=== PATIENT | male | born 1985 | race Caucasian/White ===

== ENCOUNTER 2019-02-23 22:00 | Emergency (ER) | payer SELFPAY ==
[2019-02-23] MEDS ORDERED: Ibuprofen 800 MG TAB ONE (22:06)
[2019-02-23] MEDS ORDERED: Adacel (T-DAP) 0.5 ML SYRINGE ONE (22:07)
== END 2019-02-23 22:23 | disposition left against medical advice (07) ==
LOC: BURERS 22:00
DX: T63.001A Toxic effect of unspecified snake venom, accidental (unintentional), initial encounter (principal); F17.210 Nicotine dependence, cigarettes, uncomplicated; Z79.899 Other long term (current) drug therapy
CPT/HCPCS: 90471; 90715

== ENCOUNTER 2021-10-16 16:16 | Emergency (ER) | payer SELFPAY ==
[2021-10-16] MEDS ORDERED: Fluorescein Opthalmic Strip ONE (16:29)
[2021-10-16] MEDS ORDERED: Tetracaine 0.5% PF 4 ML BOT ONE (16:29)
[2021-10-16] MEDS ORDERED: Erythromycin Base 0.5% Ophth Oint 3.5 gm Tube ONE (17:19)
== END 2021-10-16 17:51 | disposition home or self-care (01) ==
LOC: BURERS 16:16
DX: T15.02XA Foreign body in cornea, left eye, initial encounter (principal); F17.210 Nicotine dependence, cigarettes, uncomplicated; W45.8XXA Other foreign body or object entering through skin, initial encounter
CPT/HCPCS: 99283